=== PATIENT | female | born 1940 | race Caucasian/White ===

== ENCOUNTER 2019-06-03 08:45 | Outpatient (CLI) | payer MEDICARE, OTHER ==
--- NOTE | 2019-06-03 10:34 | CT Report ---
Reason: OSTEOMYELITIS Procedure Date: 06/03/2019 Accession Number: [id number] / [id number] Procedure: CT - MAXILLOFACIAL WO CPT Code: Final Report FULL RESULT: EXAM: CT MAXILLOFACIAL WITHOUT CONTRAST EXAM DATE: 06/03/2019 09:27 AM. CLINICAL HISTORY: OSTEOMYELITIS. Pain to left maxillary area for 1 year. Multiple root canals in region. COMPARISONS: None. TECHNIQUE: Thin-section axial images were acquired of the face without contrast. Post-processing: Coronal and sagittal reformats. Other: None. In accordance with CT protocol optimization, one or more of the following dose reduction techniques were utilized for this exam: automated exposure control, adjustment of mA and/or KV based on patient size, or use of iterative reconstructive technique. FINDINGS: Evaluation limited from streak artifact related to metallic dental hardware in region of left upper jaw abnormality described below. Soft Tissue: The infratemporal fossa and parapharyngeal spaces are unremarkable. Orbits: Symmetric and unremarkable. Bones: There is confluent periapical lucency involving the left upper lateral incisor through at least the second bicuspid with bony destruction and disruption of the lingual greater than facial surfaces of the bone in this region. This is consistent with dental abscess with area of osseous involvement measuring 2.1 x 0.7 cm in the axial plane. Area of lingual disruption measures 6 mm. Area of facial side bone disruption measures 4 mm. Difficult to evaluate for soft tissue extension due to extensive artifact from metallic dental hardware in this region and lack of intravenous contrast, although there is some apparent soft tissue swelling in the facial side without definite discrete soft tissue collection. Severe degenerative changes of the partially visualized cervical spine, greatest at C2 and C5-C6. There is grade 1 anterolisthesis of C4 on C5. Temporomandibular Joints: The temporomandibular joints are symmetric and normally located. Sinuses: Mucous retention cyst or polyp in the base of the left maxillary sinus. Otherwise, no mucosal thickening or fluid levels. Mastoid air cells are clear. Other: None. IMPRESSION: 1. Dental abscess involving multiple left upper frontal teeth with bony destruction and disruption at the lingual and facial surfaces of the bone. 2. Difficult to evaluate for soft tissue extension due to extensive artifact from metallic dental hardware in region and lack of intravenous contrast. There is some trace soft tissue swelling along the facial surface in area without discrete collection. [facility] The call report notification system was initiated by Dr. Antoni Mckinney at 10:19 AM on 06/03/2019.
== END 2019-06-03 08:46 | disposition home or self-care (01) ==
LOC: DI 08:45
PROVIDERS: ATTEND Dentist Oral and Maxillofacial Surgery
DX: M86.9 Osteomyelitis, unspecified (principal); K04.7 Periapical abscess without sinus; M89.8X8 Other specified disorders of bone, other site
CPT/HCPCS: 70486

== ENCOUNTER 2019-11-23 10:20 | Outpatient (CLI) | payer MEDICARE, OTHER | END 2019-11-23 10:21 | disposition home or self-care (01) | LOC: COV 10:20 | PROVIDERS: ATTEND Dentist Oral and Maxillofacial Surgery | DX: Z01.818 Encounter for other preprocedural examination (principal); M86.9 Osteomyelitis, unspecified; Z20.828 Contact with and (suspected) exposure to other viral communicable diseases ==

== ENCOUNTER 2019-11-27 06:24 | Day surgery (SDC) | payer MEDICARE, OTHER ==
[2019-11-27] MEDS ORDERED: LACTATED RINGERS 1,000 ML IV ONE ×2 (06:30→09:10)
[2019-11-27] MEDS ORDERED: LIDOCAINE-MPF 0.5% 50 ML VIAL ONE (07:05)
--- NOTE | 2019-11-27 07:18 | ANESTHESIA ---
Pre-Anesthesia VS, & Labs - Diagnosis osteomyelitis - Procedure bone debridement of left maxilla Vital Signs: Temp Pulse Resp BP Pulse Ox 36.3 C L 86 16 129/60 98 11/27/19 06:30 11/27/19 06:30 11/27/19 06:30 11/27/19 06:30 11/27/19 06:30 Height 5 ft Weight (kg) 63.4 kg - NPO >8 hours - Is Patient ?: No - Lab Results Current Lab Results: Laboratory Tests 11/27/19 06:58: POC Whole Bld Glucose 200 H Home Medications and Allergies Home Medications: Ambulatory Orders Insulin Glargine [Lantus Solostar] 20 unit SQ BID 11/24/19 Lisinopril [Prinivil] 5 mg PO DAILY 11/24/19 Insulin Glargine [Lantus Solostar] 20 unit SQ BID 11/24/19 Lisinopril [Prinivil] 5 mg PO DAILY 11/24/19 Allergies/Adverse Reactions: Allergies Allergy/AdvReac Type Severity Reaction Status Date / Time fenofibrate Allergy Itching Verified 11/24/19 13:35 gluten Allergy Nausea Verified 11/24/19 13:35 hydromorphone Allergy Hives Verified 11/24/19 13:42 iodine Allergy Rash Verified 11/24/19 13:35 lactose Allergy Nausea Verified 11/24/19 13:35 lorazepam Allergy Nausea Verified 11/24/19 13:35 morphine Allergy Respiratory Verified 11/24/19 13:35 niacin Allergy Hives Verified 11/24/19 13:35 oxycodone Allergy Respiratory Verified 11/24/19 13:35 Penicillins Allergy Nausea Verified 11/24/19 13:35 aspirin AdvReac Emesis Verified 11/24/19 13:35 metformin AdvReac Nausea Verified 11/24/19 13:42 theophylline AdvReac Nausea Verified 11/24/19 13:35 Anes History & Medical History - Anesthetic History Anesthesia Complications: reports: No previous complications - Medical History Cardiovascular: reports: None Pulmonary: reports: None Gastrointestinal: reports: Other Urinary: reports: None Musculoskeletal: reports: Osteoarthritis, Scoliosis Endocrine/Autoimmune: reports: Type 2 diabetes Skin: reports: None - Surgical History General: Hiatal hernia repair, Colonoscopy, EGD Orthopedic: Spine surgery Exam General: Alert Neck Mobility: Normal Mallampati classification: II Thyromental Distance: greater than 6 cm Respiratory: Lungs clear Cardiovascular: Regular rate Plan Anesthesia Type: General Consent for Procedure(s) Verified and Reviewed: Yes Code Status: Attempt Resuscitation ASA classification: 2-Mild systemic disease Is this case an emergency?: No
[2019-11-27] MEDS ORDERED: METOCLOPRAMIDE 10 MG/2 ML VIAL IVP PRN (07:22)
[2019-11-27] MEDS ORDERED: ePHEDrine 50 MG/ML VIAL IVP PRN (07:22)
[2019-11-27] MEDS ORDERED: ONDANSETRON 4 MG/2 ML VIAL IVP PRN (07:22)
[2019-11-27] MEDS ORDERED: ATROPINE ABBOJECT 1 MG/10 ML SYRINGE IVP PRN (07:22)
[2019-11-27] MEDS ORDERED: NALOXONE 0.4 MG/ML VIAL IVP PRN (07:22)
[2019-11-27] MEDS ORDERED: levoFLOXacin 500 MG/100 ML 500 MG/100 ML BAG IV ONE (07:53)
[2019-11-27] MEDS ORDERED: LACTATED RINGERS 1,000 ML IV SCH (08:00)
[2019-11-27] MEDS ORDERED: BUPIVACAINE 0.25%-EPI 1:200000 PF 30 ML VIAL ONE (08:26)
[2019-11-27] MEDS ORDERED: BUPIVACAINE 0.25%-EPI 1:200000 PF 10 ML VIAL SUBQ ONE (09:16)
[2019-11-27] MEDS ORDERED: KETOROLAC 15 MG/ML VIAL ONE (10:15)
--- NOTE | 2019-11-27 10:30 | OPERATIVE REPORT ---
DATE OF SERVICE: 11/27/2019 Physician: David Rangel DDS PREOPERATIVE DIAGNOSES 1. Osteomyelitis of the left maxilla. 2. Necrotic tooth #12 with intermittent association with the osteomyelitis. POSTOPERATIVE DIAGNOSES 1. Osteomyelitis of the left maxilla. 2. Necrotic tooth #12 with intermittent association with the osteomyelitis. PROCEDURES PERFORMED 1. Debridement of the left maxilla. 2. Deep bone biopsy of the left maxilla. PRIMARY SURGEON: David Rangel DDS ANESTHESIA PROVIDER: ROYCE Ghosh. TELECOMMUNICATIONS OFFICER: Silvana. ANESTHESIA TYPE: General anesthesia via nasal endotracheal intubation. ESTIMATED BLOOD LOSS: Less than 10 mL DRAINS, PACKS, CATHETERS: None. IMPLANTS: None. COMPLICATIONS: None. SPECIMENS: A sample of the tissue inside of the left maxilla was sent to microbiology for acid fast bacteria, fungal, aerobic and anaerobic culture and sensitivity. Another specimen was sent to pathology for microscopic evaluation. DESCRIPTION OF THE PROCEDURE: Patient is an 79-year-old female who has had a longstanding radiolucency of the left maxilla with occasional episodes of swelling, drainage, and pain. She has undergone extensive antibiotic therapy and conservative debridement; however, her lesion has failed to resolve, and it continues to be a problem for her. 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 The risks, benefits, and alternatives of this plan were discussed with patient including pain, swelling, bleeding, infection, continuation of the osteomyelitis, damage to adjacent teeth, need for further surgeries, nerve damage, cosmetic deformity. Adequate time was given to answer all questions, and informed consent was obtained. DESCRIPTION OF PROCEDURE: Patient was brought to the main operating room and placed in the supine position on the operating table. General anesthesia was induced, and the airway was secured with a nasal endotracheal tube secured to the forehead in the usual fashion. The eyes were protected with tape. No prep was performed at patient's request. This is not an inappropriate request since this procedure is performed through the mouth. A throat pack was placed. All pressure points were padded and checked. A formal timeout was executed. Local anesthesia was achieved with 9 mL of 0.5% Marcaine with 1:200,000 epinephrine. Attention was directed to the left maxilla. A crestal incision with mesial and distal releases was made, and a buccal full-thickness flap was performed, exposing the entire left maxilla up to the level of the infraorbital nerve posteriorly back behind the buttress and anteriorly up to the floor of the nose. A round bur was then used to perform an osteotomy through the buccal cortex of the maxilla, unroofing the lesion. This was difficult around the canine tooth #11 in order to protect the root, and that portion of the lesion was not unroofed. The lesion was then carefully curetted, and all aspects of the vacancy in the maxilla were explored thoroughly with a curette. Specimens were submitted for pathology and microbiology. The area was then irrigated with copious amounts of sterile saline. The soft tissues were then reapproximated with 4-0 chromic gut suture. Patient's mouth was rinsed free of debris. The face was cleansed. The throat pack was removed. The oropharynx was suctioned delicately. Care of patient was returned to the anesthesia staff for uneventful extubation. Patient was transferred to the PACU and arrived there in stable condition. TD: 11/27/2019 09:47 LILIANA
[2019-11-27 10:56] VITALS: BP 125/60
--- NOTE | 2019-11-27 13:48 | ANESTHESIA POST OP EVALUATION ---
Anesthesia Post Eval - Post Anesthesia Eval Vitals: Last Vital Signs Temp 36.7 C 11/27/19 10:07 Pulse 92 11/27/19 10:55 Resp 14 11/27/19 10:55 BP 125/60 11/27/19 10:55 Pulse Ox 95 11/27/19 10:55 CV Function Including HR & BP: positive: Stable Pain Control: positive: Satisfactory Nausea & Vomiting: positive: Negative Mental Status: positive: Baseline Respiratory Status: Airway Patent Hydration Status: Satisfactory Anesthesia Complications: positive: None
== END 2019-11-27 06:25 | disposition home or self-care (01) ==
LOC: SDS 06:24
PROVIDERS: ATTEND Dentist Oral and Maxillofacial Surgery
PROC: 0NBR0ZX Excision of Maxilla, Open Approach, Diagnostic (ICD-10-PCS; principal; 2019-11-27 07:30)
DX: M27.2 Inflammatory conditions of jaws (principal); K04.1 Necrosis of pulp; E11.9 Type 2 diabetes mellitus without complications; I10 Essential (primary) hypertension
CPT/HCPCS: 20240; 81599; 87070; 87077; 87181; 87205; J3490; J7120